=== PATIENT | male | born 1940 | race Caucasian/White ===

== ENCOUNTER 2019-07-09 15:42 | Observation (INO) | payer MEDICARE, OTHER ==
[~2019-07-09] VITALS: Ht 172.7 cm; Wt 76.7 kg
--- OUTSIDE RECORDS SUMMARY | 2019-07-09 15:45 | XMS REPORT ---
Author Author [facility] Address Unknown Phone Unavailable Care Team Providers Care [employer] Name Role Phone Unavailable Unavailable Payers Payer Name Policy Type Policy Number Effective Date Expiration Date Problems This patient has no known problems. Allergies, Adverse Reactions, Alerts Allergy Name Allergy Type Status Severity Reaction(s) Onset Date Inactive Date Treating Clinician Comments No Known Allergies DA Active U 2016-10-31 00:00:00 Medications This patient has no known medications. Results Test Description Test Time Test Comments Text Results Atomic Results Result Comments - CT LOWER EXTRM W/O C LT 2019-03-06 10:33:00 Name: TATO RAY [facility] : 1940 Age/S: 78 / M [address] Unit #: [id number] Loc: [place] [address] Phys: Gio Rodriguez MD Acct: [id number] Dis Date: Status: REG ER PHONE #: [phone] Exam Date: 03/06/2019 1001 FAX #: [phone] Reason: left hip pain EXAMS: CPT CODE: [id number] CT LOWER EXTRM W/[place] [address] HISTORY: Left hip pain. COMPARISON: None available. CT left hip without contrast: Automated exposure control. No acute fracture of the left hip. No AVN. Acetabulum is unremarkable. The left pubic bones are unremarkable. Visualized left sacrum and iliac wing are unremarkable. SI joint is within normal limits without sclerosis or diastases. The proximal femur is unremarkable. Small joint fluid. Mild capsular distention. No trochanteric fluid collection or trochanteric bursitis. Musculature appears unremarkable. IMPRESSION: No acute fracture. No AVN. Small joint fluid with capsular distention. No trochanteric collection or bursitis. No muscle contusion or fluid collections. at 1033 Reported and signed by: Monster Giang M.D. CC: Gio Rodriguez MD; Stanton Monaco III, MD; Marilynn Olea MD Technologist:Felix Jones RT(R),(MR),(CT); CTDI: DLP: Trnscb Date/Time: 03/06/2019 (1033) [email or web address] Orig Print D/T: S: 03/06/2019 (1037) PAGE 1 Signed Report - XR HIP W/PEL UNI 2+V LT 2019-03-06 07:33:00 FAX: Stanton Agosto III [phone] [place]: St: REG FAX: Marilynn Olea MD [phone] Name: TATO RAY [facility] : 1940 Age/S: 78/M [address] Unit #: [id number] Loc: [place] [address] Phys: Marilynn Olea MD Acct: [id number] Dis Date: Status: REG ER PHONE #: [phone] Exam Date: 03/06/2019 07 FAX #: [phone] Reason: pain, trauma EXAMS: CPT CODE: [id number] XR HIP W/PEL UNI 2+[place] [address] CLINICAL HISTORY: pain, trauma TECHNIQUE: Neutral and frog leg AP views of the left hip COMPARISON: None FINDINGS: No acute fracture. Left hip joint is not dislocated. Mild bilateral hip joint space narrowing with acetabular marginal osteophytes. Visualized bony pelvis is intact. Osteopenia. Regional soft tissues are unremarkable. IMPRESSION: No acute fracture or dislocation of the left hip. LOCATION: LP at 0733 Reported and signed by: Eli Hill D.O. CC: Carlos Enrique CLARK,Stanton Graham MD; Marilynn Olea MD Technologist: RT ROCIO(R) Trnscrd Date/Time/By: 03/06/2019 (0733) : By: [email or web address] Orig Print D/T: S: 03/06/2019 (0736) PAGE 1 Signed Report CBC W/AUTO DIFF 2019-03-06 07:24:00 WHITE BLOOD CELL (test code=WBC) 10.7 K/mm3 4.5-12.5 RED BLOOD CELL (test code=RBC) 3.85 mill/mm3 4.0-5.8 HEMOGLOBIN (test code=HGB) 13.2 gram/dL 13.0-17.5 HEMATOCRIT (test code=HCT) 40.0 % 42.0-52.0 MEAN CELL VOLUME (test code=MCV) 103.9 fL 80-98 MEAN CELL HGB (test code=MCH) 34.3 picogram 27.0-33.0 MEAN CELL HGB CONCETRATION (test code=MCHC) 33.0 gram/dL 33.0-36.0 RED CELL DISTRIBUTION WIDTH (test code=RDW) 12.3 % 11.6-16.2 RED CELL DISTRIBUTION WIDTH SD (test code=RDW-SD) 47.1 fL 37.0-51.0 PLATELET COUNT (test code=PLT) 205 K/mm3 150-450 MEAN PLATELET VOLUME (test code=MPV) 10.9 fL 6.7-11.0 NEUTROPHIL % (test code=NT%) 81.8 % 39.0-69.0 IMMATURE GRANULOCYTE % (test code=IG%) 0.4 % 0.0-5.0 LYMPHOCYTE % (test code=LY%) 8.3 % 25.0-55.0 MONOCYTE % (test code=MO%) 7.4 % 0.0-10.0 EOSINOPHIL % (test code=EO%) 1.7 % 0.0-5.0 BASOPHIL % (test code=BA%) 0.4 % 0.0-1.0 NUCLEATED RBC % (test code=NRBC%) 0.0 % 0-0 NEUTROPHIL # (test code=NT#) 8.72 K/mm3 1.8-7.7 IMMATURE GRANULOCYTE # (test code=IG#) 0.04 x10 3/uL 0-0.03 LYMPHOCYTE # (test code=LY#) 0.89 K/mm3 1.0-5.0 MONOCYTE # (test code=MO#) 0.79 K/mm3 0-0.8 EOSINOPHIL # (test code=EO#) 0.18 K/mm3 0.0-0.5 BASOPHIL # (test code=BA#) 0.04 K/mm3 0.0-0.2 NUCLEATED RBC # (test code=NRBC#) 0.00 K/mm3 0.0-0.1 COMPREHENSIVE METABOLIC [id number] 07:20:00* Test Item Value Reference Range Comments SODIUM (test code=NA) 141 mmol/L 136-145 POTASSIUM (test code=K) 3.6 mmol/L 3.5-5.1 CHLORIDE (test code=CL) 107.0 mmol/L 98-107 CARBON DIOXIDE (test code=CO2) 25.0 mmol/L 21-32 ANION GAP (test code=GAP) 12.6 10-20 GLUCOSE (test code=GLU) 153 mg/dL 74-106 BLOOD UREA NITROGEN (test code=BUN) 14 mg/dL 7-18 GLOMERULAR FILTRATION RATE (test code=GFR) > 60 mL/min >=60 Estimated GFR by using Modified MDRD formula.Chronic kidney disease is defined as either kidney damageor GFR <60 mL/min/1.73 m2 for >3 months. CREATININE (test code=CREAT) 1.10 mg/dL 0.7-1.3 BUN/CREATININE RATIO (test code=BUN/CREA) 13.1 10-20 TOTAL PROTEIN (test code=PROT) 6.8 gram/dL 6.4-8.2 ALBUMIN (test code=ALB) 3.3 g/dL 3.4-5.0 GLOBULIN (test code=GLOB) 3.5 gram/dL 2.7-4.2 ALBUMIN/GLOBULIN RATIO (test code=A/G) 0.9 0.75-1.50 CALCIUM (test code=CA) 9.1 mg/dL 8.5-10.1 BILIRUBIN TOTAL (test code=BILT) 0.30 mg/dL 0.0-1.0 SGOT/AST (test code=AST) 17 IUnit/L 15-37 SGPT/ALT (test code=ALT) 20 IUnit/L 12-78 ALKALINE PHOSPHATASE TOTAL (test code=ALKP) 74 IUnit/L 45-117 Note change in reference range due to change in reagent. PROTHROMBIN [id number] 07:17:00* Test Item Value Reference Range Comments PROTHROMBIN TIME PATIENT (test code=PTP) 11.3 seconds 9.0-14.0 INTERNATIONAL NORMAL RATIO (test code=INR) 1.0 0.8-1.2 The therapeutic range for oral anticoagulant therapy formost indications is an international normalized ratio (INR)of between 2.0 and 3.0. The recommended therapeutic INRrange for various clinical situations is listed below: Clinical Situation INR range Pulmonary e mbolism treatment (2.0-3.0)Venous thrombosis treatmentVenous thrombosis prophylaxis (high risk surgery)Prevention of systemic embolism from: Acute myocardial infarction Valvular heart disease Atrial fibrillation Mechanical prosthetic heart valves (2.5-3.5) IS PATIENT ON ANTICOAGULANTS? NTHROMBOPLASTIN TIME [id number] 07:17:00* Test Item Value Reference Range Comments THROMBOPLASTIN TIME PARTIAL (test code=PTT) 25.5 seconds 25.0-36.5 IS PATIENT ON ANTICOAGULANTS? NCOMPREHENSIVE METABOLIC [id number] 07:10:00 * Test Item Value Reference Range Comments SODIUM (test code=NA) 141 mmol/L 136-145 POTASSIUM (test code=K) 3.6 mmol/L 3.5-5.1 CHLORIDE (test code=CL) 107.0 mmol/L 98-107 CARBON DIOXIDE (test code=CO2) mmol/L 21-32 ANION GAP (test code=GAP) 10-20 GLUCOSE (test code=GLU) mg/dL 74-106 BLOOD UREA NITROGEN (test code=BUN) mg/dL 7-18 GLOMERULAR FILTRATION RATE (test code=GFR) mL/min >=60 CREATININE (test code=CREAT) mg/dL 0.7-1.3 BUN/CREATININE RATIO (test code=BUN/CREA) 10-20 TOTAL PROTEIN (test code=PROT) gram/dL 6.4-8.2 ALBUMIN (test code=ALB) g/dL 3.4-5.0 GLOBULIN (test code=GLOB) gram/dL 2.7-4.2 ALBUMIN/GLOBULIN RATIO (test code=A/G) 0.75-1.50 CALCIUM (test code=CA) 9.1 mg/dL 8.5-10.1 BILIRUBIN TOTAL (test code=BILT) mg/dL 0.0-1.0 SGOT/AST (test code=AST) IUnit/L 15-37 SGPT/ALT (test code=ALT) IUnit/L 12-78 ALKALINE PHOSPHATASE TOTAL (test code=ALKP) IUnit/L 45-117 CBC W/AUTO [id number] 07:00:00* Test Item Value Reference Range Comments WHITE BLOOD CELL (test code=WBC) K/mm3 4.5-12.5 RED BLOOD CELL (test code=RBC) mill/mm3 4.0-5.8 HEMOGLOBIN (test code=HGB) 13.2 gram/dL 13.0-17.5 HEMATOCRIT (test code=HCT) % 42.0-52.0 MEAN CELL VOLUME (test code=MCV) fL 80-98 MEAN CELL HGB (test code=MCH) picogram 27.0-33.0 MEAN CELL HGB CONCETRATION (test code=MCHC) gram/dL 33.0-36.0 RED CELL DISTRIBUTION WIDTH (test code=RDW) % 11.6-16.2 RED CELL DISTRIBUTION WIDTH SD (test code=RDW-SD) fL 37.0-51.0 PLATELET COUNT (test code=PLT) K/mm3 150-450 MEAN PLATELET VOLUME (test code=MPV) fL 6.7-11.0 NEUTROPHIL % (test code=NT%) % 39.0-69.0 IMMATURE GRANULOCYTE % (test code=IG%) % 0.0-5.0 LYMPHOCYTE % (test code=LY%) % 25.0-55.0 MONOCYTE % (test code=MO%) % 0.0-10.0 EOSINOPHIL % (test code=EO%) % 0.0-5.0 BASOPHIL % (test code=BA%) % 0.0-1.0 NEUTROPHIL # (test code=NT#) K/mm3 1.8-7.7 LYMPHOCYTE # (test code=LY#) K/mm3 1.0-5.0 MONOCYTE # (test code=MO#) K/mm3 0-0.8 EOSINOPHIL # (test code=EO#) K/mm3 0.0-0.5 BASOPHIL # (test code=BA#) K/mm3 0.0-0.2 COMPREHENSIVE METABOLIC [id number] 12:41:00* Test Item Value Reference Range Comments SODIUM (test code=NA) 138 mmol/L 135-148 POTASSIUM (test code=K) 4.7 mmol/L 3.5-5.1 CHLORIDE (test code=CL) 103 mmol/L 101-109 CARBON DIOXIDE (test code=CO2) 26.9 mmol/L 21-32 ANION GAP (test code=GAP) 13 mmol/L 10-20 GLUCOSE (test code=GLU) 102 mg/dL 74-106 BLOOD UREA NITROGEN (test code=BUN) 19 mg/dL 3-21 CREATININE (test code=CREAT) 1.08 mg/dL 0.55-1.3 BUN/CREATININE RATIO (test code=BUN/CREA) 17.6 10-20 TOTAL PROTEIN (test code=PROT) 7.4 g/dL 6.5-8.4 ALBUMIN (test code=ALB) 3.2 g/dL 3.4-4.8 GLOBULIN (test code=GLOB) 4.2 G/DL 1-10 ALBUMIN/GLOBULIN RATIO (test code=A/G) 0.8 RATIO 0.75-1.50 CALCIUM (test code=CA) 8.5 mg/dL 8.4-10.2 BILIRUBIN TOTAL (test code=BILT) 0.30 mg/dL 0.0-1.0 SGOT/AST (test code=AST) 16 U/L 6-32 SGPT/ALT (test code=ALT) 21 U/L 12-78 Note: Change in REFERENCE RANGE due to new reagent method. ALKALINE PHOSPHATASE TOTAL (test code=ALKP) 92 U/L 38-126 COMPREHENSIVE METABOLIC [id number] 12:38:00* Test Item Value Reference Range Comments SODIUM (test code=NA) 138 mmol/L 135-148 POTASSIUM (test code=K) 4.7 mmol/L 3.5-5.1 CHLORIDE (test code=CL) 103 mmol/L 101-109 CARBON DIOXIDE (test code=CO2) 26.9 mmol/L 21-32 ANION GAP (test code=GAP) 13 mmol/L 10-20 GLUCOSE (test code=GLU) 102 mg/dL 74-106 BLOOD UREA NITROGEN (test code=BUN) 19 mg/dL 3-21 CREATININE (test code=CREAT) 1.08 mg/dL 0.55-1.3 BUN/CREATININE RATIO (test code=BUN/CREA) 17.6 10-20 TOTAL PROTEIN (test code=PROT) gram/dL 6.4-8.2 ALBUMIN (test code=ALB) g/dL 3.4-5.0 GLOBULIN (test code=GLOB) g/dL 2.7-4.2 ALBUMIN/GLOBULIN RATIO (test code=A/G) 0.75-1.50 CALCIUM (test code=CA) 8.5 mg/dL 8.4-10.2 BILIRUBIN TOTAL (test code=BILT) mg/dL 0.2-1.2 SGOT/AST (test code=AST) IUnit/L 15-37 SGPT/ALT (test code=ALT) U/L 10-69 ALKALINE PHOSPHATASE TOTAL (test code=ALKP) IUnit/L 45-117 CBC W/O [id number] 12:23:00* Test Item Value Reference Range Comments WHITE BLOOD CELL (test code=WBC) 6.3 K/mm3 4.5-12.5 RED BLOOD CELL (test code=RBC) 3.91 mill/mm3 4.0-5.8 HEMOGLOBIN (test code=HGB) 9.7 gram/dL 13.0-17.5 HEMATOCRIT (test code=HCT) 32.3 % 42.0-52.0 MEAN CELL VOLUME (test code=MCV) 82.6 fL 80-98 MEAN CELL HGB (test code=MCH) 24.8 picogram 27.0-33.0 MEAN CELL HGB CONCETRATION (test code=MCHC) 30.0 gram/dL 33.0-36.0 RED CELL DISTRIBUTION WIDTH (test code=RDW) 19.4 % 11.6-16.2 RED CELL DISTRIBUTION WIDTH SD (test code=RDW-SD) 56.4 fL 39.2-49.5 PLATELET COUNT (test code=PLT) 297 K/mm3 150-450 MEAN PLATELET VOLUME (test code=MPV) 10.2 fL 6.7-11.0
[2019-07-09] MEDS ORDERED: FUROSEMIDE INJ 10 MG/ML 2 ML VIAL IV ONE (16:45)
[2019-07-09] MEDS ORDERED: ALBUTEROL/IPRATROPIUM 3 ML NEB NEB PRN (16:45)
[2019-07-09] MEDS ORDERED: ZOLPIDEM TARTRATE 5 MG TAB PO PRN ×3 (16:45→21:00)
[2019-07-09 17:09] VITALS: BP 131/66
[2019-07-09 17:14] LABS: BASOPHILS # (AUTO) 0.1 (0.0-0.1); BASOPHILS % 0.5 % (0.0-1.0); EOSINOPHILS # (AUTO) 1.1 (0.0-0.4); EOSINOPHILS % 11.5 % (0.0-6.0); HEMATOCRIT 38.6 % (38.2-49.6); HEMOGLOBIN 12.9 g/dL (14.0-18.0); LYMPHOCYTES # (AUTO) 1.3 (1.0-3.2); LYMPHOCYTES % 14.1 % (18.0-39.1); MEAN CORPUSCULAR HEMOGLOBIN 32.8 pg (28-32); MEAN CORPUSCULAR HGB CONC 33.4 g/dL (31-35); MEAN CORPUSCULAR VOLUME 98.2 fL (81-99); MONOCYTES # (AUTO) 1.2 (0.2-0.8); MONOCYTES % 12.6 % (4.4-11.3); NEUTROPHILS # (AUTO) 5.6 (2.1-6.9); PLATELET COUNT 295 x10e3/uL (140-360); RED BLOOD COUNT 3.93 x10e6/uL (4.3-5.7); RED CELL DISTRIBUTION WIDTH 12.6 % (11.7-14.4)
--- NOTE | 2019-07-09 17:17 | Diagnostic Imaging Report ---
Exam: PA and lateral chest radiograph Clinical history: Dyspnea next Findings: There is no evidence of pulmonary consolidation, pleural effusion, or pneumothorax. The cardiac size is within normal limits. A 5.2 cm structure with air-fluid level is seen in the retrocardiac region most consistent with a hiatal hernia. The regional osseous structures are unremarkable. Signed by: Dr. Jensen Evans MD on 07/09/2019 5:15 PM
[2019-07-09 17:34] LABS: ALBUMIN 3.7 g/dL (3.5-5.0); ANION GAP 14.9 mmol/L (8-16); CALCIUM 9.2 mg/dL (8.4-10.2); CREATININE, SERUM 1.25 mg/dL (0.72-1.25); POTASSIUM 3.9 mmol/L (3.5-5.1)
[2019-07-09] MEDS: METHYLPREDNISOLONE SOD SUCC 40 MG/ML VIAL 1ML IV SCH (18:05)
[2019-07-09] MEDS: DOXYCYCLINE 100MG/NS 100ML 100 ML IV SCH (18:05)
[2019-07-09] MEDS ORDERED: SODIUM CHLORIDE 0.9% 250ML 250 ML ONE (18:12)
[2019-07-09 19:26] VITALS: BP 131/66
--- NOTE | 2019-07-09 19:30 | NUR ---
Patient states he has no medication allergies
[2019-07-09 19:39] VITALS: BP 137/62
[2019-07-09] MEDS: ALBUTEROL/IPRATROPIUM 3 ML NEB NEB PRN ×2 (20:05→23:15)
[2019-07-09 20:57] LABS: INR 1.02
[2019-07-09 20:59] LABS: PARTIAL THROMBOPLASTIN TIME 22.6 seconds (23.8-35.5)
[2019-07-09] MEDS ORDERED: METHYLPREDNISOLONE SOD SUCC 40 MG/ML VIAL 1ML IV SCH (21:00)
[2019-07-09] MEDS ORDERED: DOXYCYCLINE 100MG/NS 100ML 100 ML IV SCH (21:00)
[2019-07-09 23:08] VITALS: BP 132/67
[2019-07-10] VITALS (8 sets, daily range): BP systolic 112–139; BP diastolic 57–69
[2019-07-10] MEDS: ALBUTEROL/IPRATROPIUM 3 ML NEB NEB PRN ×2 (03:00→06:30)
[2019-07-10] MEDS: METHYLPREDNISOLONE SOD SUCC 40 MG/ML VIAL 1ML IV SCH (06:13)
[2019-07-10] MEDS: DOXYCYCLINE 100MG/NS 100ML 100 ML IV SCH (06:13)
--- NOTE | 2019-07-10 07:00 | NUR ---
RCD PT AT BED PT IS ALERT AND ORIENTED RESTING ON BED IV PATENT BY SALINE FLUSH BED LOW AND LOCKED CALL LIGHT IN REACH
[2019-07-10] MEDS ORDERED: SOD CHL 0.45%/POT CHL 20MEQ 1,000 ML IV ONE ×2 (08:30→19:00)
[2019-07-10] MEDS: GUAIFENESIN/CODEINE 10 ML CUP PO PRN ×3 (08:40→23:28)
[2019-07-10] MEDS ORDERED: PANTOPRAZOLE 40 MG 10ML VIAL IV SCH (09:00)
--- NOTE | 2019-07-10 10:04 | Diagnostic Imaging Report ---
CT of the chest, without contrast. History: Retrocardiac opacity. Comparison: Chest radiograph from 07/09/2019. Technique: Multidetector CT scanning of the chest was performed from the level of the apices to the upper abdomen without contrast. Coronal and sagittal multiplanar reformations were obtained. RADIATION DOSE: Total DLP: 558.17 mGy*cm Dose modulation, iterative reconstruction, and/or weight based adjustment of the mA/kV was utilized to reduce the radiation dose to as low as reasonably achievable. FINDINGS: The thyroid and remaining visualized structures within the base of the neck demonstrate no significant abnormalities. The thoracic aorta is normal course and caliber. The heart is not enlarged. No abnormal pericardial fluid is present. Atherosclerotic calcifications are noted within the coronary arteries. There multiple normal-sized to mildly prominent mediastinal lymph nodes are noted, nonspecific. Mild bilateral gynecomastia noted. The trachea and proximal airways are patent. There is bibasilar atelectasis/scarring. Additionally, clustered subcentimeter nodules are identified within the left lower lobe suggestive of a small airways infectious/inflammatory process. There is no evidence for consolidation, pneumothorax, mass, or pleural effusion. There is a moderate sized hiatal hernia present which likely corresponds to the retrocardiac air-fluid level noted on the recent prior chest radiograph. There is a partially visualized 1.4 cm hypodensity identified within the right hepatic lobe which is not characterized on this noncontrast CT of the chest. The remaining visualized intra-abdominal contents are unremarkable. There is kyphosis and multilevel degenerative changes noted of the visualized spine. The osseous structures otherwise demonstrate no evidence for acute fracture or destructive process. IMPRESSION: Moderate sized hiatal hernia which corresponds to the retrocardiac air-fluid level noted on the recent prior chest radiograph. Bibasilar atelectasis and clustered subcentimeter nodules noted within the left lower lobe likely reflecting sequela of small airways disease. Partially visualized hypodensity noted within the right hepatic lobe which is not definitively characterized on this examination. Further evaluation could be performed with dedicated liver CT or MRI if clinically indicated. Signed by: Dr. Kei Powell MD on 07/10/2019 10:01 AM
[2019-07-10] MEDS: ALBUTEROL/IPRATROPIUM 3 ML NEB NEB SCH ×4 (10:45→23:10)
--- NOTE | 2019-07-10 12:37 | Consultation ---
DATE OF CONSULTATION: 07/10/2019 Cardiology Consultation HISTORY OF PRESENT ILLNESS: Mr. Winston is a 78-year-old man with history of dyslipidemia, alcohol abuse, and suspected COPD, who presents with complaints of sore throat, wheezing, and increasing shortness of breath. He has been admitted for initiation of IV antibiotics and inhalers. Given increasing shortness of breath, further workup from a cardiovascular standpoint has been considered. An echocardiogram has been ordered and is currently pending to be performed. Neymar denies any chest discomfort, lightheadedness, syncope, or palpitations. He denies any prior cardiovascular history that he recalls. REVIEW OF SYSTEMS: A 12-system review is negative except for as noted above. ALLERGIES: RECORDED TO WARFARIN AND CHOLESTEROL MEDICINE UNSPECIFIED. SOCIAL HISTORY: Denies active smoking. Denies drug use and does endorse alcohol use. FAMILY HISTORY: Noncontributory. Does live with , who cares for nonagenarian mother with dementia. PHYSICAL EXAMINATION: VITAL SIGNS: Temperature 96 degrees, heart rate 102, blood pressure 139/62, respiratory rate 20, and O2 saturation 98%. BMI 25.6. GENERAL: No acute distress. Alert. NECK: No JVD. CARDIOVASCULAR: Regular rate and rhythm. Normal S1 and S2. No S3 or S4. Systolic ejection murmur 1/6. CHEST: With scattered rhonchi and wheezing particularly to both bases. ABDOMEN: Soft. Bowel sounds positive. EXTREMITIES: No edema. Warm extremities. CARDIOVASCULAR MEDICATIONS: Reviewed. Methylprednisolone, doxycycline, albuterol/ipratropium, pantoprazole, famotidine, p.r.n. zolpidem. STUDIES: Reviewed. Creatinine 1.25, sodium 138, bicarbonate 23, and potassium 3.9. White blood cells 9.2, hemoglobin 12.9, and platelets 295. AST 15 and ALT 12. INR 1.02. ASSESSMENT AND PLAN: A 78-year-old man presents with sore throat, wheezing, and increasing shortness of breath. On exam with wheezing. RECOMMEND: 1. Echocardiogram has been ordered and is pending. We will follow up with results once available. 2. Agree with antibiotics and inhaler trial. 3. Alcohol abuse cessation counseling. Thai Trotter MD [facility]/CHEL /[id number]
--- NOTE | 2019-07-10 15:00 | NUR ---
Visit made by the Spiritual Care Department Pastoral Visitor, Naila French. Pt sleeping soundly and no family present. Pastoral Visitor left a card describing availability of harness tier and instructions on how to contact a harness tier. BERNARDA LAWS Analytical Chemist Spiritual Care Department O: [phone]
--- NOTE | 2019-07-10 15:13 | History and Physical ---
CHIEF COMPLAINT: Dyspnea and congestion. HISTORY OF PRESENT ILLNESS: The patient is a 78-year-old man. He has a history of prior pulmonary emboli and is currently on warfarin. He also has a history of COPD. He uses bronchodilators through a nebulizer at home. He came to the office about a week ago and complained of congestion. He received Solu-Medrol and antibiotics as an outpatient along with continued nebulizer treatments, but did not improve. Yesterday, he returned to the office with worsening congestion, dyspnea, and rhonchorous breath sounds. PAST MEDICAL HISTORY: 1. COPD. 2. History of pulmonary emboli. 3. The patient denies any prior cardiac history. PAST SURGICAL HISTORY: Noncontributory. ALLERGIES: THE PATIENT IS ALLERGIC TO CHOLESTEROL MEDICATIONS. SOCIAL HISTORY: The patient is not an active smoker. He is not a drinker. He is very concerned about his mother at home, who was Alzheimer disease as well as his , who cannot drive. REVIEW OF SYSTEMS: The patient denies any fever. He has no headache or neck pain. He does not have any chest pain. He has no congestion or cough. He has no abdominal pain. There is no nausea or vomiting. He has no leg edema. PHYSICAL EXAMINATION: VITAL SIGNS: The patient is afebrile. The blood pressure is 112/57 and the pulse ox is 97% on 2 L. HEENT: Shows no facial swelling or erythema. LYMPHATIC: Shows no submandibular, cervical or supraclavicular adenopathy. CARDIAC: Reveals a regular rate and rhythm with normal S1 and S2. LUNGS: Auscultation of lungs reveals rhonchorous breath sounds bilaterally. There is a prolonged expiratory phase and some wheezing. ABDOMEN: Soft, nontender. There is no rebound or guarding. EXTREMITIES: Show no leg edema or calf tenderness. There is no cyanosis or clubbing. SKIN: Shows no rashes. NEUROLOGICAL: Shows no focal abnormalities. RADIOGRAPHIC DATA: Chest x-ray shows retrocardiac wheezing consistent with hiatal hernia. LABORATORY DATA: BUN to creatinine ratio is 12-1.25. Other electrolytes are within normal limits. The white blood cell count is 9 and hemoglobin is 12.9. The platelet count is 295. PTT is 14. IMPRESSION: 1. Chronic obstructive pulmonary disease with acute exacerbation. 2. Hiatal hernia and gastroesophageal reflux. 3. Remote history of pulmonary emboli. 4. Acute kidney injury. PLAN: 1. Continue Solu-Medrol along with doxycycline. 2. Aggressive bronchodilator therapy. 3. Cardiology evaluation. 4. CT scan of chest without contrast because of the elevated creatinine. 5. Ventilation-perfusion scan. 6. Echocardiogram and Cardiology evaluation. MD CHYNA Mendoza/ROBERT /[id number]
[2019-07-10] MEDS: FAMOTIDINE 20 MG TAB PO SCH (15:53)
--- NOTE | 2019-07-10 16:00 | NUR ---
ROBITUSSIN /CODEINE 5 ML GIVEN 5 ML WASTED
--- NOTE | 2019-07-10 16:04 | NUR ---
PAGED DR CURRY TO NOTIFY THE HEART RATE ABOVE 120 /MT AND LEFT THE MESSAGE
--- NOTE | 2019-07-10 17:30 | NUR ---
PAGED AND NOTIFIED THE EKG REPORT TO DR ROY HE SAID ITS ST NO NEW ORDERS
[2019-07-10] MEDS: DOXYCYCLINE HYCLATE TABLET 100 MG TAB PO SCH (18:00)
[2019-07-10] MEDS: METHYLPREDNISOLONE SOD SUCC 125 MG/2ML VIAL IV SCH (18:00)
--- NOTE | 2019-07-10 18:41 | NUR ---
PT RESTING ON BED BED SIDE REPORT GIVEN TO ONCOMING NURSE
--- NOTE | 2019-07-10 18:50 | NUR ---
PT C/O DRYNESS ON THROAT AND NOSE [AGED AND NOTIFIED DR BAXTER GOT NEW ORDERS
[2019-07-10] MEDS ORDERED: IPRATROPIUM BROMIDE 0.03% NASAL SPRAY 30ML SCH ×2 (19:20→21:00)
[2019-07-10] MEDS ORDERED: IPRATROPIUM BROMIDE 0.06% 42 MCG NASPR NS SCH (21:00)
[2019-07-11] VITALS: BP 101/56
[2019-07-11] MEDS: ALBUTEROL/IPRATROPIUM 3 ML NEB NEB SCH ×2 (02:40→07:40)
[2019-07-11 04:00] VITALS: BP 92/55
[2019-07-11 05:10] LABS: BASOPHILS % 0.1 % (0.0-1.0); HEMATOCRIT 35.4 % (38.2-49.6); HEMOGLOBIN 11.3 g/dL (14.0-18.0); LYMPHOCYTES # (AUTO) 0.8 (1.0-3.2); LYMPHOCYTES % 5.1 % (18.0-39.1); MEAN CORPUSCULAR HEMOGLOBIN 31.9 pg (28-32); MEAN CORPUSCULAR HGB CONC 31.9 g/dL (31-35); MONOCYTES # (AUTO) 0.8 (0.2-0.8); MONOCYTES % 5.5 % (4.4-11.3); NEUTROPHILS # (AUTO) 13.6 (2.1-6.9); NEUTROPHILS % 88.6 % (38.7-80.0); PLATELET COUNT 288 x10e3/uL (140-360); RED BLOOD COUNT 3.54 x10e6/uL (4.3-5.7)
[2019-07-11 05:34] LABS: ALANINE AMINOTRANSFERASE 9 IU/L (0-55); ALBUMIN 3.4 g/dL (3.5-5.0); ALBUMIN/GLOBULIN RATIO 1.2 (0.8-2.0); ALKALINE PHOSPHATASE 58 IU/L (40-150); BLOOD UREA NITROGEN 18 mg/dL (7-26); BUN/CREATININE RATIO 22 (6-25); CALCIUM 8.7 mg/dL (8.4-10.2); CARBON DIOXIDE 23 mmol/L (22-29); CHLORIDE 106 mmol/L (98-107); CREATININE, SERUM 0.83 mg/dL (0.72-1.25); EST GLOMERULAR FILTRATION RATE > 60 ML/MIN (60-); GLUCOSE 127 mg/dL (74-118); SODIUM 136 mmol/L (136-145)
[2019-07-11] MEDS: DOXYCYCLINE HYCLATE TABLET 100 MG TAB PO SCH (06:35)
[2019-07-11] MEDS: METHYLPREDNISOLONE SOD SUCC 125 MG/2ML VIAL IV SCH (06:35)
--- NOTE | 2019-07-11 07:00 | NUR ---
RCD PT AT BED PT IS ALERT AND ORIENTED RESTING ON BED IV PATENT BY SALINE FLUSH BED LOW AND LOCKED CALL LIGHT IN REACH
[2019-07-11] MEDS ORDERED: PANTOPRAZOLE SOD 40 MG TABEC PO SCH (07:30)
[2019-07-11] MEDS: FAMOTIDINE 20 MG TAB PO SCH (07:30)
[2019-07-11 08:10] VITALS: BP 123/68
[2019-07-11 08:28] VITALS: BP 123/68
[2019-07-11 08:41] VITALS: BP 123/68
[2019-07-11] MEDS ORDERED: DOXYCYCLINE HY100 MG PO (09:14)
[2019-07-11] MEDS ORDERED: PREDNISONE10 MG PO (09:16)
--- NOTE | 2019-07-11 10:13 | NUR ---
Notified by Rut Coe RN, the patients nurse, that there is a delay in the discharge of this patient d/t an unread VQ Scan from 07/10/2019. I notified the Rad Corporate Director Of Pharmacy, Leah Galindo and she is calling the radiologist that is reading the scans to make this a priority read. The nurse will call the results to Dr. Alfonzo Aguirre the discharge the patient.
--- NOTE | 2019-07-11 10:15 | NUR ---
PAGED AND NOTIFIED THE VQ LUNG SCAN REPORT TO DR BAXTER GOT THE ORDER TO DISCHARGE THE PATIENT
--- NOTE | 2019-07-11 10:26 | Diagnostic Imaging Report ---
Ventilation/perfusion lung scan Clinical Information: 78 M with COPD, acute onset SOB, cough x 2-3 weeks; history of PE. Comparison: Chest radiograph 07/10/2019 Discussion: Xenon-133 gas 10 mCi was administered via inhalation. Dynamic images of the lungs in the posterior projection were obtained through single breath, equilibrium, and washout phases. Distribution of tracer activity is mildly irregular throughout the lungs. There are no segmental ventilatory defects. Washout of tracer is diffusely delayed with diffuse air trapping. Perfusion images of the lungs were obtained in multiple projections following intravenous administration of approximately 5.8 mCi of Tc-99m MAA. Distribution of tracer is mildly irregular throughout the lungs. The contours of the lungs are well demarcated. There are no segmental perfusion defects of any size. The cardiomediastinal silhouette is unremarkable. Impression: 1. Scan findings represent a VERY LOW probability for acute pulmonary embolic disease based on the PIOPED II criteria. 2. Scan evidence of obstructive lung disease. Signed by: Dr. Kalee Harmon M.D. on 07/10/2019 7:03 PM
--- NOTE | 2019-07-11 10:35 | NUR ---
PT WENT HOME IN SAFE CONDITION
--- NOTE | 2019-07-12 04:13 | Discharge Summary ---
DISCHARGE MEDICATIONS: 1. Prednisone taper. 2. Doxycycline 100 mg b.i.d. for 10 days. 3. Albuterol through a nebulizer q.4 p.r.n. DISCHARGE DIAGNOSES: 1. Chronic obstructive pulmonary disease with acute exacerbation. 2. Hiatal hernia and gastroesophageal reflux. 3. Acute kidney injury. RADIOGRAPHIC STUDIES: CT scan of the chest shows hiatal hernia with some retrocardiac air-fluid level. The patient also has some bibasilar atelectasis and a possible hypodensity in the right lower lobe of the liver. HISTORY OF PRESENT ILLNESS: The patient is a 78-year-old man. He has a history of prior pulmonary emboli and COPD. He was taking warfarin previously. He is currently complaining of increased congestion and cough. He has some phlegm production. He notes dyspnea and wheezing. He is not complaining of fevers. HOSPITAL COURSE: The patient was admitted. He had wheezing and rhonchi consistent with COPD exacerbation. He received IV Solu-Medrol. His states some improvement with this. He also received IV antibiotics and bronchodilators. The patient was seen by Cardiology. He had an echocardiogram that showed a preserved left ventricular function with no significant valvular abnormalities. He also had a CT scan of the chest that showed some emphysema along with a hiatal hernia and a possible liver abnormality. He had a V/Q scan as well. At the time of discharge, he felt much better and was very inpatient to go home. He apparently has a parent who is sick at home as well as who cannot drive. DISPOSITION: The patient will be discharged home. He will follow up with Dr. Aguirre in 7 to 10 days. He will require a dedicated CT or MRI of his liver to rule out any pathology. Michael Aguirre MD [facility]/CHEL /[id number]
== END 2019-07-11 10:35 | disposition home or self-care (01) ==
LOC: MED/SURG2 15:42
PROVIDERS: ADMIT Internal Medicine Critical Care Medicine; ATTEND Internal Medicine Critical Care Medicine
DX: J44.1 Chronic obstructive pulmonary disease with (acute) exacerbation (principal); Z86.711 Personal history of pulmonary embolism; Z79.01 Long term (current) use of anticoagulants; Z88.8 Allergy status to other drugs, medicaments and biological substances; K21.9 Gastro-esophageal reflux disease without esophagitis; K44.9 Diaphragmatic hernia without obstruction or gangrene; N17.9 Acute kidney failure, unspecified; E78.5 Hyperlipidemia, unspecified
CPT/HCPCS: 36415 ×2; 71046; 71250; 78582; 80053 ×2; 82948; 83880; 85025 ×2; 85610; 85730; 87040; 87400; 93005; 93306; 94640 ×5; 96360; 96361; A9540; A9558; C9113; G0378 ×3; J1940; J2920 ×2; J2930 ×2; J7050; S0164